=== PATIENT | female | born 1985 | race Caucasian/White ===

== ENCOUNTER 2017-01-09 11:20 | Emergency (ER) | payer BC ==
[~2017-01-09] VITALS: Ht 170.2 cm; Wt 80.5 kg
[2017-01-09 12:14] LABS: HEMATOCRIT 39.8 % (36.0-46.0); MCH 30.6 PG (29.0-34.0); MCHC 33.2 G/DL (30.0-36.0); MCV 92.1 FL (83-99); MEAN PLAT.VOLUME 8.9 uM^3 (9.5-12.4); PLATELET COUNT 307 K/uL (156-360); RBC DIS.WIDTH-CV 12.7 % (11.8-14.6); RBC DIS.WIDTH-SD 43.1 % (39-53); RED BLOOD COUNT 4.32 M/uL (3.80-5.20); WHITE BLOOD COUNT 9.5 K/uL (4.1-10.2)
[2017-01-09 12:23] LABS: CHLORIDE 108 mEq/L (99-109); POTASSIUM 3.9 mEq/L (3.7-5.4); SODIUM 140 mEq/L (136-147)
[2017-01-09 12:25] LABS: GLUCOSE 91 mg/dL (70-99)
[2017-01-09 12:26] LABS: ANION GAP 12 MEQ/L (2-14)
[2017-01-09 12:27] LABS: TOTAL BILIRUBIN 0.6 mg/dL (0.0-1.0)
[2017-01-09 12:29] LABS: ALKALINE PHOSPHATASE 50 IU/L (3-129)
[2017-01-09 12:30] LABS: GFR ESTIMATE (CALCULATED) > 59 mL/min/; UREA NITROGEN (BUN) 7 mg/dL (9-23)
[2017-01-09 12:37] LABS: QUANTITATIVE HCG < 4.0 MIU/ML
[2017-01-09 13:49] LABS: ADD MIUA? NO; BILIRUBIN NEGATIVE; BLOOD NEGATIVE; COLOR STRAW ((YELLOW)); GLUCOSE (STRIP) NEGATIVE; KETONES NEGATIVE; LEUKOCYTES NEGATIVE; NITRITE NEGATIVE; PROTEIN (STRIP) NEGATIVE; UROBILINOGEN 0.2 MG/DL (0.2-1.0)
[2017-01-09 14:12] LABS: UCUL ADDED? NO
[2017-01-09 14:21] LABS: LIPASE 40 U/L (1.0-51.0)
[2017-01-09] MEDS ORDERED: ZOFRAN ODT4 MG PO (16:17)
[2017-01-09] MEDS ORDERED: NAPROXEN500 MG PO (16:17)
[2017-01-09 16:25] VITALS: BP 123/78
== END 2017-01-09 16:39 | disposition home or self-care (01) ==
LOC: EME 11:20
DX: R10.11 Right upper quadrant pain (principal); K86.1 Other chronic pancreatitis; Z87.891 Personal history of nicotine dependence; Z90.49 Acquired absence of other specified parts of digestive tract; Z90.710 Acquired absence of both cervix and uterus
CPT/HCPCS: 74176; 80053; 81003; 83690; 84702; 85027; 99281; 99285; J1885